=== PATIENT | male | born 1945 | race Caucasian/White ===

== ENCOUNTER 2017-08-30 08:05 | Day surgery (SDC) | payer MEDICARE, OTHER, BC ==
[~2017-08-30] VITALS: Ht 172.7 cm; Wt 86.4 kg
--- NOTE | ~2017-08-30 | OP ---
PATIENT NAME: IVETTE LEDBETTER MEDICAL RECORD: [id number] :41 LOCATION:D.OPS ADMISSION DATE: SURGEON: CHIP ARANGO MD DATE OF OPERATION: 08/30/2017 PREOPERATIVE DIAGNOSIS: History of Gonzalez esophagus. POSTOPERATIVE DIAGNOSIS: History of Gonzalez esophagus. PROCEDURE: Esophagogastroduodenoscopy with antral and distal esophageal biopsies. SURGEON: Chip Arango MD CEMETERY LABORER: None. BLOOD LOSS: Minimal. ANESTHESIA: IV sedation. COMPLICATIONS: None. The risks, possible complications and alternatives to procedure were explained to the patient. He elects to proceed. The indication for the anesthesia staff being present during the procedure includes anxiety regarding the procedure. ENDOSCOPIC COURSE: The patient was conveyed to the endoscopy suite electively on 08/30/2017. IV sedation was induced by the anesthesia staff. A bite block was inserted. A gastroscope was inserted into the mouth. It was advanced easily into the hypopharynx. The esophagus was easily intubated as were the stomach and duodenum. Upon withdrawal, retroflexed and angulus views were obtained. Antral biopsies were obtained. Then multiple distal esophageal biopsies were obtained at the EG junction. The endoscope was then withdrawn under direct vision. I will see the patient in my office in 2-3 weeks. I will plan for his next surveillance upper endoscopy to take place in 2 years. TRANSINT:[id number] Voice Confirmation ID: [id number] DOCUMENT ID: [id number] CHIP ARANGO MD CC: [id number] DICTATION DATE: 08/30/17 1112 MANAGER CCU: 08/30/17 1130 REG [facility] [address] [place] [address]
--- NOTE | ~2017-08-30 | HP ---
PATIENT: IVETTE LEDBETTER MEDICAL RECORD: [id number] ACCOUNT: [id number] LOCATION:STEVE : 41 ADMISSION DATE: 08/30/17 HISTORY AND PHYSICAL EXAMINATION HISTORY OF PRESENT ILLNESS: The patient is here for surveillance upper endoscopy with biopsies. He underwent upper endoscopy with biopsies back in 2015. He was found to have Gonzalez's, which was negative for dysplasia. The risks, possible complications and alternatives to procedure were explained to the patient. He elects to proceed. Today's current medications have been reviewed. He has been off Coumadin for several days. ALLERGIES: No known drug allergies. PAST MEDICAL AND SURGICAL HISTORY: Prostate cancer, gastroesophageal reflux which is controlled with medication, history of coronary stent, questionable history of myocardial infarction, hypertension, coronary artery disease, history of pulmonary embolism. REVIEW OF SYSTEMS: No dysphagia. PHYSICAL EXAMINATION: GENERAL: The patient does not appear acutely ill. He does not appear chronically ill. EARS: He is hard of hearing. NECK: Trachea is midline. CHEST: No intercostal retractions. PULMONARY: Nonlabored, no stridor. ABDOMEN: No peritonitis with movement. PRINCIPAL DIAGNOSIS: History of Gonzalez's esophagus. PLAN: Will be surveillance upper endoscopy with biopsies. TRANSINT:[id number] Voice Confirmation ID: [id number] DOCUMENT ID: [id number] LISBET ARANGO MD CC: CHRISTY GOMEZ M.D. and RAGHU THOMAS [id number] DICTATION DATE: 08/30/17 1048 ELEMENTARY SCHOOL TEACHER: 08/30/17 1104 REG [facility] [address] [place] [address]
[~2017-08-30 08:05] MED LIST: ACULAR 0.5 % OPH5 ML RIGHT EYE; ALLEGRA180 MG PO; ANTIVERT25 MG PO; BAYER CHEWABLE81 MG PO; COUMADIN5 MG PO; COZAAR50 MG PO; GLUCOSAMINE HC500 MG PO; MUCINEX DM ER1 EAC1 PO; NORCO 7.5/325 T1 TA1 PO; OMNICEF300 MG PO; PLAVIX75 MG PO; PREDNISOLONE 110 ML RIGHT EYE; PRILOSEC20 MG PO; RELAFEN500 MG PO; SINGULAIR10 MG PO; VERELAN180 MG PO; VITAMIN D2000 UNIT PO; ZOCOR20 MG PO
[2017-08-30 08:50] VITALS: Ht 172.7 cm; Wt 86.4 kg
[2017-08-30 09:51] LABS: HEMOGLOBIN 14.3 g/dL (13.5-17.5); MCH 28.7 pg (26.0-34.0); MCHC 32.5 g/dL (31.0-37.0); MCV 88.2 fL (80.0-100.0); RBC 4.99 10x6/uL (4.20-6.10); RDW 13.8 % (11.5-14.5); WBC 7.2 10x3/uL (4.8-10.8)
[2017-08-30 14:49] LABS: INR 1.18 (0.85-1.17); PROTIME 14.6 SECONDS (11.6-15.0)
== END 2017-08-30 12:15 | disposition home or self-care (01) ==
LOC: D.OPS 08:05
PROVIDERS: Anesthesiology; Surgery
DX: K22.70 Barrett's esophagus without dysplasia (principal); K21.9 Gastro-esophageal reflux disease without esophagitis; Z85.46 Personal history of malignant neoplasm of prostate; Z79.01 Long term (current) use of anticoagulants; Z01.812 Encounter for preprocedural laboratory examination

== ENCOUNTER → 2019-07-19 08:21 | Outpatient (CLI) | payer MEDICARE, OTHER, BC ==
[2017-08-30 08:50] VITALS: BMI 28.9
== END | disposition home or self-care (01) ==
LOC: D.HCCECHO 08:21
PROVIDERS: ATTEND Internal Medicine Cardiovascular Disease
DX: I35.1 Nonrheumatic aortic (valve) insufficiency (principal)

== ENCOUNTER → 2020-04-14 08:27 | Outpatient (CLI) | payer MEDICARE, OTHER, BC ==
[2019-08-28 11:11] VITALS: BMI 30.4
== END | disposition home or self-care (01) ==
LOC: D.HCCARDIO 08:27
PROVIDERS: ATTEND Internal Medicine Cardiovascular Disease
DX: I25.10 Atherosclerotic heart disease of native coronary artery without angina pectoris (principal)

== ENCOUNTER → 2020-05-01 06:47 | Day surgery (SDC) | payer MEDICARE, OTHER, BC ==
[~2020-05-01] VITALS: Ht 172.7 cm; Wt 86.5 kg
--- NOTE | ~2020-05-01 | HEMODYNAMI ---
PATIENT:IVETTE LEDBETTER MEDICAL RECORD: [id number] : 41 LOCATION:DPIOTR ADMISSION DATE: 05/01/20 Generatedon:05/01/20209:08 Patient name: IVETTE LEDBETTER Patient #: [id number] : 1945 Date of study: 05/01/2020 Page: Of Hemodynamic Procedure Report Patient Data Patient Demographics Procedure consent was obtained First Name: IVETTE Gender: Male Last Name: ANATOLY : 1945 Patient #: [id number] Age: 74 year(s) Race: Unknown SSN: [id number] Additional ID: [id number] Contact details Address: [address] [place] [address] [facility] State: [place] City: [place] Zip code: [address] Past Medical History Allergies: No known allergies Admission Admission Data Admission Date: 05/01/2020 Admission Time: 6:47 Arrival Date: 05/01/2020 Arrival Time: 0:00 Admit Source: Other Insurance Payor: Medicare [facility] #: [id number] Height (in.): 27.56 BSA: 1.05 (m2) Height (cm.): 70 BMI: 178.66 (kg/m2) Weight (lbs.): 193 Weight (kg.): 87.54 Lab Results Lab Result Date: 05/01/2020 Lab Result Time: 7:05 Biochemistry Name Units Result Min Max BUN mg/dl 22 --(----)-* 7 18 Creatinine mg/dl 1.1 --(--*-)-- 0.6 1.3 CBC Name Units Result Min Max Hematocrit % 45.1 --(-*--)-- 42 54 Hemoglobin g/dl 14.7 --(-*--)-- 13.5 17.5 Procedure Procedure Types Cath Procedure Diagnostic Procedure LHC LH w/Coronaries FFR/IVUS FFR Initial FFR Additional Sedation Charges Moderate Sedation up to 30 minutes Procedure Description Procedure Date Procedure Date: 05/01/2020 Procedure Start Time: 8:42 Procedure End Time: 9:06 Procedure Staff Name Function John Hylton MD Performing Physician Oh Dickinson RT Monitor Noah Ellsworth RN Nurse Deja Miguel RT Scrub Procedure Data Cath Procedure Fluoroscopy Diagnostic fluoroscopy Total fluoroscopy Time: 4.7 time: 4.7 min min Diagnostic fluoroscopy Total fluoroscopy dose: 827 dose: 827 mGy mGy Contrast Material Contrast Material Type Amount (ml) Isovue 300 76 Entry Location Entry Primary Successful Side Size Upsize Upsize Entry Closure Succes sful Closure Location (Fr) 1 (Fr) 2 (Fr) Remarks Device Remarks Femoral Right 5 Fr Exoseal artery Estimated blood loss: 10 ml Diagnostic catheters Device Type Used For End Catheter Placement MULTIPACK JL 4.0 5Fr Procedure catheter MULTIPACK 3DRC 5Fr Procedure catheter MULTIPACK Pigtail 5 Fr Procedure catheter MULTIPACK JL 4.0 5Fr Procedure catheter MULTIPACK 3DRC 5Fr Procedure catheter Procedure Complications No complications Procedure Medications Medication Administration Route Dosage 0.9% NaCl I.V. 100 ml/hr Oxygen etCO2 Nasal cannula 2 l/min Heparin Flush Bag added to field 2 bags (1000units/500ml NS) Lidocaine 2% added to field 20 Versed I.V. 1 mg Fentanyl I.V. 50 mcg Heparin Bolus I.V. 4000 units Hemodynamics Rest BSA: 1.05 (m2) HGB: 14.7 (g/dl) O2 Consumption: Estimated: 111.24 (ml/min) O2 Co nsumption indexed: Estimated:105.94 (ml/min/m) Heart Rate: 47 (bpm) Pressure Samples Time Site Value (mmHg) Purpose Heart Use Rate(bpm) 8:50 LV 145/-4,11 Snapshot 54 8:51 AO 139/72(99) Pullback 47 8:51 LV 132/-3,15 Pullback 47 Gradients Valve Time Site 1 Site 2 Mean SEP/DFP Peak To Heart Use (mmHg) (sec/min) Peak Rate (mmHg) (bpm) Aortic 8:51 LV AO 0 10 0 47 132/-3,15 139/72(99) Calculations Valve P-P Mean Valve Index Valve Source Name Gradient Area Flow (cm2) Aortic 0 0 0 0 Snapshots Pre Cath Intra NCS Post Cath Vital Signs Time Heart Resp SPO2 etCO2 NIBP (mmHg) Rhythm Pain Sedation Rate (ipm) (%) (mmHg) Status Level (bpm) 8:32:05 58 23 99 0 145/89(107) NSR 0 (11) 10(A) , No pain 8:36:19 56 15 94 11.2 137/78(102) NSR 0 (11) 10(A) , No pain 8:40:29 57 11 99 17.9 139/83(125) NSR 0 (11) 10(A) , No pain 8:44:39 59 12 98 26.2 149/86(115) NSR 0 (11) 9(A) , No pain 8:48:53 64 12 98 37.4 148/89(106) NSR 0 (11) 9(A) , No pain 8:53:05 63 12 98 36.7 146/90(108) NSR 0 (11) 9(A) , No pain 8:57:19 61 13 98 37.4 139/80(96) NSR 0 (11) 9(A) , No pain 9:01:28 61 12 99 0 151/89(127) NSR 0 (11) 9(A) , No pain 9:05:40 61 15 99 39.6 151/93(138) NSR 0 (11) 10(A) , No pain Medications Time Medication Route Dose Verified Delivered Reason Notes Effectiveness by by 8:29:53 0.9% NaCl I.V. 100 Noah Noah Per physician ml/hr Seng Ellsworth RN RN 8:30:01 Oxygen etCO2 2 Noah Noah for low 02 sats Nasal l/min Seng Ellsworth cannula RN RN 8:30:11 Heparin Flush added 2 Noah Noah used for Bag to bags Seng Ellsworth procedure (1000units/500ml RN RN NS) 8:30:22 Lidocaine 2% added 20ml Noah Noah for local to vial Seng Ellsworth anesthetic field FONSECA RN 8:38:31 Versed I.V. 1 mg Noah Noah for sedation Seng Ellsworth RN RN 8:38:39 Fentanyl I.V. 50 Noah Noah for sedation mcg Seng Ellsworth RN RN 8:53:47 Heparin Bolus I.V. 4000 Noah Noah for units Seng Ellsworth anticoagulation RN helicopter repairer Log Time Note 8:04:16 Arrival Date: 05/01/2020 12:00:00 AM 8:04:40 Admit Source: Other 8:04:43 Insurance Payor : Medicare 8:05:31 Noah Ellsworth RN sent for patient. Start room use. 8:05:37 Patient Height : 27.56 inches 8:05:44 Patient Weight : 193 lbs 8:21:29 Procedure Status Elective Heart Cath (OP). 8:21:37 Time tracking: Regular hours (M-F 7:00 - 5:00) 8:21:41 Plan of Care:Hemodynamics will remain stable., Cardiac rhythm will remain stable., Comfort level will be maintained., Respiratory function will remain adequate., Patient/ family verbilizes understanding of procedure., Procedure tolerated without complication., Recovers from procedure without complications.. 8:21:46 Patient received from Pre/Post Procedure Room to CCL 2 Alert and oriented. Tansferred to table in Supine position. 8:21:47 Warm blankets applied, and sary hugger turned on for patient comfort. 8:21:48 Signed procedure consent form obtained from patient. 8:21:49 Correct patient and procedure confirmed by team. 8:21:50 ECG and BP/O2 sat monitors applied to patient. 8:21:56 H&P Date Dictated: 04/08/2020 Within 30 days and on chart., H&P Addendum completed by physician on day of procedure. (MUST COMPLETE FOR ALL OUTPATIENTS). 8:21:57 Pre-procedure instructions explained to patient. 8:21:58 Pre-op teaching completed and patient verbalized understanding. 8:21:58 Family in waiting room. 8:22:00 Patient NPO since Midnight. 8:22:13 Patient allergic to No known allergies 8:29:53 0.9% NaCl 100 ml/hr I.V. was administered by Noah Ellsworth RN; Per physician; Verbal order read back and verified. 8:30:01 Oxygen 2 l/min etCO2 Nasal cannula was administered by Noah Ellsworth RN; for low 02 sats; Verbal order read back and verified. 8:30:11 Heparin Flush Bag (1000units/500ml NS) 2 bags added to field was administered by Noah Ellsworth RN; used for procedure; Verbal order read back and verified. 8:30:22 Lidocaine 2% 20ml vial added to field was administered by Noah Ellsworth RN; for local anesthetic; Verbal order read back and verified. 8:30:26 Vital chart was started 8::52 Lab Result : Creatinine 1.1 mg/dl 8::52 Lab Result : BUN 22 mg/dl 8::52 Lab Result : Hematocrit 45.1 % 8:30:52 Lab Result : Hemoglobin 14.7 g/dl 8:30:57 Is the patient allergic to Iodine/contrast media? No. 8:30:59 Is patient on blood thinner?Yes 8:31:01 ACC The patient was administered the following blood thiners within the last 24 hours: None 8:31:28 Patient diabetic? No. 8:31:36 Previous problem with sedation/anesthesia? No ? 8:31:38 Snore? Yes 8:31:39 Sleep apnea? Yes 8:31:39 Deviated septum? No 8:31:40 Opens mouth fully? Yes 8:31:41 Sticks out tongue? Yes 8:31:42 Airway obstruction? No ? 8:31:45 Dentures? No ? 8:31:47 Pre procedure: right dorsailis pedis pulse 2+ Normal; easily identifiable; not easily obliterated 8:31:50 Patient pain scale 0/10 ?. 8:36:25 IV patent on arrival in left forearm with 0.9% NaCl at [facility]. 8:36:27 Lab results completed and on chart. 8:36:34 Stress Test: yes; abnormal inferior latera 8:36:42 Right groin area was prepped with chlora-prep and draped in sterile fashion 8:36:43 Alarms reviewed by R. N. 8:36:45 Sharps counted by scrub and verified by R.N. 8:36:48 Use device set Femoral Dx 8:36:49 ACIST Syringe (14419) opened to sterile field. 8:36:49 Bag Decanter (2002) opened to sterile field. 8:36:49 Medline Cath Pack ([id number]) opened to sterile field. 8:36:50 ACIST Hand Control (41179) opened to sterile field. 8:36:50 ACIST Manifold (41454) opened to sterile field. 8:36:51 DIAGNOSTIC Multipack 5Fr catheter set ([id number]) opened to sterile field. 8:36:51 Tegaderm 4 x 4 (1626W) opened to sterile field. 8:36:54 SHEATH 5FR Mcclure (FMO902) opened to sterile field. 8:36:55 EMERALD Guide Wire (947-163) opened to sterile field. 8:36:59 Baseline sample Acquired. 8:37:25 Rhythm: sinus rhythm 8:37:27 Full Disclosure recording started 8:37:34 ACC Patient presents with Stable Angina CCS Anginal Class 2--Slight limitation of ordinary activity. 8:37:46 Physician arrived 8:37:46 --------ALL STOP TIME OUT------ 8:37:47 Final Timeout: patient, procedure, and site verified with staff and physician. All members of the team are in agreement. 8:37:48 Right groin site verified by team. 8:37:51 Fire Safety Assessment: A--An alcohol-based skin anteseptic being used preoperatively., C--Open oxygen or nitrous oxide is being used., D--An ESU, laser, or fiber-optic light is being used. 8:37:53 Physical assessment completed. ASA score P 2 - A patient with mild systemic disease as per John Hylton MD. 8:38:01 2) 60-89 Mildly reduced kidney function, and other findings (as for stage 1) point to kidney disease. 8:38:17 Maximum allowable contrast dose (3.7 X eGFR X 0.75)191 ml. 8:38:20 Sedation plan: IV Moderate Sedation Medication:Versed, Fentanyl 8:38:28 Zero performed for pressure channel P1 8:38:31 Versed 1 mg I.V. was administered by Noah Ellsworth RN; for sedation; Verbal order read back and verified. 8:38:39 Fentanyl 50 mcg I.V. was administered by Noah Ellsworth RN; for sedation; Verbal order read back and verified. 8:42:18 Procedure started. 8:42:21 Local anesthetic to right femoral artery with Lidocaine 2% by John Hylton MD.INITIAL ACCESS ONLY 8:42:28 A 5 Fr sheath was inserted into the Right Femoral artery 8:44:03 A MULTIPACK JL 4.0 5Fr catheter was advanced over the wire and used for Procedure. 8:45:34 LCA angiography performed. 8:46:06 Catheter exchanged over wire. 8:46:10 A MULTIPACK 3DRC 5Fr catheter was advanced over the wire and used for Procedure. 8:47:31 RCA angiography performed. 8:48:30 Catheter exchanged over wire. 8:48:34 A MULTIPACK Pigtail 5 Fr catheter was advanced over the wire and used for Procedure. 8:50:17 LV gram done using ASCENCIO 8:50:20 Injector settings: Ml/sec: 10, Volume: 20, 8:50:21 LV hemodynamics recorded. 8:51:31 Catheter exchanged over wire. 8:51:37 A MULTIPACK JL 4.0 5Fr catheter was advanced over the wire and used for Procedure. 8:52:09 [place] Verrata Plus pressure wire ([id number]) opened to sterile field. 8:52:16 INFLATOR Merit BasixCompak (WE1780) opened to sterile field. 8:52:17 TUBING High Pressure Extension Tubing (jaeyos) ([id number]) opened to sterile field. 8:53:47 Heparin Bolus 4000 units I.V. was administered by Noah Ellsworth RN; for anticoagulation; Verbal order read back and verified. 8:55:25 FFR/IFR wire advanced. 8:57:47 Wire advanced across lesion. 8:57:53 pLAD lesion measured at 0.93 with IFR 8:58:03 Wire removed. 8:58:07 Catheter exchanged over wire. 8:58:15 A MULTIPACK 3DRC 5Fr catheter was advanced over the wire and used for Procedure. 8:59:19 FFR/IFR wire advanced. 9:01:02 Wire advanced across lesion. 9:01:11 mRCA lesion measured at 0.95 with IFR 9:01:21 Wire removed. 9:01:23 Catheter removed. 9:01:30 EXOSEAL 5Fr (EX500) opened to sterile field. 9:02:02 Sheath removed intact; hemostasis achieved with Exoseal to the Right Femoral artery. 9:02:25 Procedure ended.(Physican Out) 9:02:48 Fluoroscopy time 04.70 minutes. 9:02:52 Fluoroscopy dose: 827 mGy 9:02:52 Flurop Dose total: 827 9:02:59 Dose Area Product 18794 mGy/cm. 9:03:02 Contrast amount:Isovue 300 76ml. 9:03:04 Maximum allowable dose exceeded? No. 9:03:05 Sharps counted by scrub and verified by R.N. 9:03:16 Insertion/operative site no bleeding no hematoma. 9:03:18 Post-op/insertion site Right Femoral artery dressed using a 4 x 4 and Tegaderm. 9:03:22 Post right femoral artery:stable, soft, clean and dry 9:05:15 Post Procedure Pulses reassessed and unchanged 9:05:18 Post-procedure physical assessment completed. ASA score P 2 - A patient with mild systemic disease as per John Hylton MD. 9:05:20 Post procedure rhythm: unchanged. 9:05:23 Estimated blood loss: 10 ml 9:05:24 Post procedure instruction explained to patient.Patient verbalizes understanding. 9:05:24 Patient needs reinforcement of post procedure teaching. 9:05:50 Procedure type changed to Cath procedure, Diagnostic procedure, LHC, LHC w/Coronaries, FFR/IVUS, FFR Initial, FFR Additional, Sedation Charges, Moderate Sedation up to 30 minutes 9:06:34 Procedure and supply charges have been captured, reviewed, submitted and are correct. 9:06:36 Procedure Complication : No complications 9:06:38 Vital chart was stopped 9:06:40 Operative report dictated upon procedure completion. 9:06:42 Report given to Pre/Post Procedure Room. 9:06:44 Patient transfered to Pre/Post Procedure Room with Stretcher. 9:06:45 Procedure ended. 9:06:45 Full Disclosure recording stopped 9:07:14 Akanksha Kulkarni RT(R) was relieved by Oh Dickinson RT(R) as monitoring person 9:07:44 Oh Dickinson RT(R) was relieved by Oh Dickinson RT(R) as monitoring person 9:07:52 End room use (Document Last) Device Usage Item Name Manufacture Quantity Catalog Hospital Part Current Minima l Lot# / Number Charge Number Stock Stock Serial# Code ACIST Acist 1 24087 315481 [id number] [id number] 20 Syringe Favoe (15299) Systems Inc Bag Microtek 1 169236 62990 122745 5 Decanter Medical Inc. () Medline Medline 1 [id number] 414374 46388 668209 5 Cath Pack ([id number]) ACIST Hand Acist 1 67231 618516 840457 203306 5 Control Medical (23318) Systems Inc ACIST Acist 1 19967 139854 245896 833074 5 Manifold Medical (50278) Systems Inc DIAGNOSTIC Cardinal 1 [id number] 084810 74205 222664 30 Multipack Health 5Fr catheter set (OL6815) Tegaderm 4 3M 1 1626W 492997 212910 813835 5 x 4 (1626W) SHEATH 5FR Terumo 1 [id number] 962081 134498 031857 5 Mcclure (FKH681) EMERALD Cardinal 1 502455 126956 349995 828440 5 Guide Wire Health (502-299) MULTIPACK Cardinal 1 717591 5 JL 4.0 5Fr Health catheter MULTIPACK Cardinal 1 219714 5 3DRC 5Fr Health catheter MULTIPACK Cardinal 1 639646 5 Pigtail 5 Health Fr catheter [place] 1 94314U 730120 [id number] 588413 5 Verrata Plus pressure wire (61898I) INFLATOR Merit 1 [id number] 435158 743593 765162 15 Merit Medical BasixCompak (JC9218) TUBING High Merit 1 [id number] 623970 62030 359697 10 Pressure Medical Extension Tubing (Hylton) (DU2066Y) EXOSEAL 5Fr Cardinal 1 EX500 237668 459808 371410 10 (EX500) Health Signature Audit [place] Stage Time Signature Unsigned Intra-Procedure 05/01/2020 Oh Dickinson 9:07:04 AM RT(R) Intra-Procedure 05/01/2020 Noah 9:07:29 AM Seng FONSECA Intra-Procedure 05/01/2020 John Hylton MD 9:08:13 AM Signatures Performing Physician : Signature : John Hylton MD Date : Time : Monitor : Oh Dickinson RT Signature : Date : Time : Nurse : Noah Lorigan Signature : RN Date : Time : [place] [address] [place] [address]
[~2020-05-01 06:47] MED LIST changes: +JANTOVEN5 MG PO
[2020-05-01 07:28] VITALS: BP 157/90; Ht 172.7 cm; Wt 86.5 kg
[2020-05-01 07:50] LABS: INR 1.1 (0.85-1.17); PROTIME 14.1 SECONDS (11.6-15.0)
[2020-05-01 08:03] LABS: HEMATOCRIT 45.1 % (42.0-54.0); HEMOGLOBIN 14.7 g/dL (13.5-17.5); LYMPHOCYTES 34.6 % (15-50); MCH 28.6 pg (26.0-34.0); MCHC 32.6 g/dL (31.0-37.0); MCV 87.7 fL (80.0-100.0); MEAN PLATELET VOLUME 10.9 fL (7.4-10.4); NEUTROPHILS 55.6 % (40-80); PLATELET COUNT 197 10x3/uL (130-400); RBC 5.14 10x6/uL (4.20-6.10); RDW 14.1 % (11.5-14.5); WBC 6.5 10x3/uL (4.8-10.8)
[2020-05-01 08:08] LABS: ANION GAP 16.3 mmol/L (8-16); CALCIUM 8.8 mg/dL (8.5-10.1); CARBON DIOXIDE 25.6 mmol/L (21.0-32.0); CHOL - HDL RATIO 2.8 ratio (2.3-4.9); CREATININE - SERUM 1.1 mg/dL (0.6-1.3); LDL-HDL RATIO 1.5 ratio (1.5-3.5); POTASSIUM - SERUM 3.9 mmol/L (3.5-5.1)
--- NOTE | 2020-05-01 09:19 | NUR ---
PT ARRIVED BY STRETCHER. PLACED ON MONITORS. ASSESSMENT COMPLETED. VSS AT THIS TIME. CALL LIGHT WITHIN REACH. FAMILY AT BEDSIDE.
--- NOTE | 2020-05-01 09:35 | NUR ---
RIGHT GROIN DRESSING C/D/I. NO S/S OF HEMATOMA NOTED. VSS. RIGHT PEDAL PULSE PALPABLE. CALL LIGHT WITHIN REACH. FAMILY AT BEDSIDE. PT DENIES NAUSEA/PAIN. GIVEN SODA. TOLERATING SIPS AT THIS TIME.
--- NOTE | 2020-05-01 10:00 | NUR ---
RIGHT GROIN DRESSING C/D/I. NO S/S OF HEMATOMA NOTED. CALL LIGHT WITHIN REACH. VSS AT THIS TIME. DENIES NAUSEA. TOLERATING SIPS OF SODA. RIGHT PEDAL PULSE PALPABLE.
--- NOTE | 2020-05-01 10:30 | NUR ---
RESTING COMFORTABLY. VSS. CALL LIGHT WITHIN REACH. RIGHT GROIN DRESSING C/D/I. NO S/S OF HEMATOMA NOTED.
--- NOTE | 2020-05-01 11:00 | NUR ---
DR. GOMEZ ROUNDED AND SPOKE WITH PT AND PT'S FAMILY. THEY VOICED UNDERSTANDING. CALL LIGHT WITHIN REACH. VSS AT THIS TIME. RIGHT GROIN DRESSING C/D/I. NO S/S OF HEMATOMA NOTED.
--- NOTE | 2020-05-01 11:20 | NUR ---
RIGHT GROIN DRESSING C/D/I. NO S/S OF HEMATOMA NOTED. HEAD OF BED INC TO 30 DEGREES. TOLERATED WELL. SET UP WITH SANDWICH TRAY AND DRINK. DENIES NAUSEA/PAIN. RIGHT PEDAL PULSE PALPABLE.
--- NOTE | 2020-05-01 12:10 | NUR ---
RIGHT GROIN DRESSING C/D/I. NO S/S OF HEMATOMA NOTED. RIGHT PEDAL PULSE PALPABLE. VSS. PIV D/C'D WITH CATH TIP INTACT. TOLERATED WELL. DISCUSSED DISCHARGE INSTRUCTIONS WITH PT AND PT'S FAMILY. THEY VOICED UNDERSTANDING. PT INSTRUCTED TO GET UP AND DRESSED AT THIS TIME.
--- NOTE | 2020-05-01 12:15 | NUR ---
PT AMBULATED TO RESTROOM. VOIDED WITHOUT DIFFICULTY. STEADY GAIT NOTED. RIGHT GROIN DRESSING C/D/I. NO S/S OF HEMATOMA NOTED. PT TAKEN OUT TO VEHICLE BY WHEELCHAIR. NO S/S OF DISTRESS NOTED. ALL BELONGINGS AND PAPERWORK IN HAND.
== END | disposition home or self-care (01) ==
LOC: D.CATH 06:47
PROVIDERS: ATTEND Internal Medicine Cardiovascular Disease
DX: I25.119 Atherosclerotic heart disease of native coronary artery with unspecified angina pectoris (principal); R94.39 Abnormal result of other cardiovascular function study; R07.9 Chest pain, unspecified